=== PATIENT | male | born 1995 | race Caucasian/White ===

== ENCOUNTER 2020-05-22 13:13 | Emergency (ER) | payer SELFPAY ==
[2020-05-22] MEDS ORDERED: Acetaminophen 500 MG Tab PO ONE (14:04)
[2020-05-22] MEDS ORDERED: Ibuprofen 400 MG Tab PO ONE (14:04)
[2020-05-22] MEDS ORDERED: Bupivacaine 0.5% 10 ML SDV INJECT ONE (14:04)
--- NOTE | 2020-05-22 14:59 | EDM.PDOC ---
ED HPI GENERAL MEDICAL PROBLEM - General Chief Complaint: Laceration Stated Complaint: FINGER LACERATION Time Seen by Provider: 05/22/20 13:18 Source of Information: Reports: Patient History Limitations: Reports: No Limitations - History of Present Illness INITIAL COMMENTS - FREE TEXT/NARRATIVE: 25-year-old male with no past medical history presenting with a laceration of the right index finger. About 1 hour prior to arrival, the patient injured his right index finger with a tape measure. There was no rust on the tool. Tetanus immunization is up-to-date. No other complaints. - Related Data Allergies Allergy/AdvReac Type Severity Reaction Status Date / Time No Known Allergies Allergy Verified 05/22/20 13:44 Home Meds: Home Meds . [No Known Home Meds] 05/22/20 [History] Past Medical History Other Dermatologic History: Previous laceration to R ring finger- splint Social & Family History - Family History Family Medical History: Noncontributory - Tobacco Use Smoking Status *Q: Never Smoker - Caffeine Use Caffeine Use: Reports: Energy Drinks - Recreational Drug Use Recreational Drug Use: No ED ROS GENERAL - Review of Systems Review Of Systems: See Below Skin: Reports: Wound ED EXAM, SKIN/RASH Exam: See Below Text/Narrative:: Vital signs reviewed. Nursing notes reviewed. Constitutional: Awake, alert, non-distressed. Head: Normocephalic, atraumatic. Eyes: EOMI, conjunctiva normal, no discharge, no scleral icterus. Ears, Nose, Throat: External ears and nose normal, moist oral mucosa. Cardiovascular: 2+ radial pulse, capillary refill less than 2 seconds. Pulmonary: normal work of breathing, no accessory muscle use. Abdomen/GI: Soft, nontender, nondistended, no guarding or rigidity, no masses. Musculoskeletal: No deformities. Integumentary: Appropriate color for ethnicity, warm, dry, no pallor or jaundice, no rash. 1.8 cm linear laceration to the volar surface of the middle phalanx of the right index finger. Neurologic: Alert, answering questions appropriately, normal speech, no facial droop, moving all extremities well. Psychiatric: Appropriate mood and affect, normal thought process. Exam Limited By: No Limitations General Appearance: Alert, WD/WN, No Apparent Distress Ears: Normal External Exam, Normal Canal, Hearing Grossly Normal, Normal TMs Nose: Normal Inspection, Normal Mucosa, No Blood Throat/Mouth: Normal Inspection, Normal Lips, Normal Teeth, Normal Gums, Normal Oropharynx, Normal Voice, No Airway Compromise Head: Atraumatic, Normocephalic Neck: Normal Inspection, Supple, Non-Tender, Full Range of Motion Respiratory/Chest: No Respiratory Distress, Lungs Clear, Normal Breath Sounds, No Accessory Muscle Use, Chest Non-Tender Cardiovascular: Normal Peripheral Pulses, Regular Rate, Rhythm, No Edema, No Gallop, No JVD, No Murmur, No Rub GI/Abdominal: Normal Bowel Sounds, Soft, Non-Tender, No Organomegaly, No Distention, No Abnormal Bruit, No Mass (Male) Exam: No Hernia, Normal Inspection, Normal Prostate, Circumcised Rectal (Males) Exam: Normal Exam, Normal Rectal Tone, Prostate Normal Back Exam: Normal Inspection, Full Range of Motion, NT Extremities: Normal Inspection, Normal Range of Motion, Non-Tender, No Pedal Edema, Normal Capillary Refill Neurological: Alert, Oriented, CN II-XII Intact, Normal Cognition, Normal Gait, Normal Reflexes, No Motor/Sensory Deficits Psychiatric: Normal Affect, Normal Mood Lymphatic: No Adenopathy ED SKIN PROCEDURES - Laceration/Wound Repair Right Digit - 2nd (Index) Appearance: Superficial Distal NVT: Neuro & Vascular Intact Anesthetic Type: Local Local Anesthesia - Bupivicaine (Marcaine): 0.5% Plain Local Anesthetic Volume: 2cc Skin Prep: Saline Exploration/Debridement/Repair: Wound Explored, In a Bloodless Field, No Foreign Material Found Closed with: Sutures Lac/Wound length In cm: 1.8 Suture Size: 4-0 # of Sutures: 4 Suture Type: Nylon Tetanus Status Addressed: Yes (Up to date) Complications: No Course - Vital Signs Text/Narrative:: 25-year-old male with a finger laceration. Tetanus up-to-date. Underwent digital block, copiously irrigated. Wound explored, no foreign bodies. Repaired with sutures, see the procedure documentation. Bandaged. Stable to discharge home. Suture removal in 7 days. [id number] Tylenol and Motrin as needed for pain. ED return precautions provided. Last Recorded V/S: Last Vital Signs Temp 36.0 C L 05/22/20 13:45 Pulse 60 05/22/20 13:45 Resp 20 07/29/20 13:45 BP 120/78 05/22/20 13:45 Pulse Ox 99 05/22/20 13:45 - Orders/Labs/Meds Orders: Active Orders 24 hr Category Date Time Status Procedure Tray at Bedside [RC] ASDIRECTED Care 05/22/20 14:04 Active ED Laceration Reflex [OM.PC] Click to Edit Oth 05/22/20 14:04 Ordered Meds: Medications Discontinued Medications Generic Name Dose Route Start Last Admin Trade Name Neville PRN Reason Stop Dose Admin Acetaminophen 1,000 mg 05/22/20 14:04 05/22/20 14:28 Tylenol Extra Strength PO 05/22/20 14:05 1,000 mg ONETIME ONE Administration Bupivacaine HCl 10 ml 05/22/20 14:04 05/22/20 14:28 Sensorcaine-Mpf 0.5% INJECT 05/22/20 14:05 10 ml ONETIME ONE Administration Ibuprofen 400 mg 05/22/20 14:04 05/22/20 14:28 Motrin PO 05/22/20 14:05 400 mg ONETIME ONE Administration Departure - Departure Time of Disposition: 15:33 Disposition: Home, Self-Care 01 Condition: Good Clinical Impression: Laceration of right index finger w/o foreign body w/o damage to nail Qualifiers: Encounter type: initial encounter Qualified Code(s): S61.210A - Laceration without foreign body of right index finger without damage to nail, initial encounter - Discharge Information Instructions: Laceration Care, Adult, Sutures, Jennifer, or Adhesive Wound Closure Forms: ED Department Discharge Additional Instructions: Your sutures need to be removed in 7 days. Take [id number] Tylenol or Motrin as needed for pain. The following information is given to patients seen in the emergency department who are being discharged. This information is to outline your options for follow-up care. We provide all patients seen in our emergency department with a follow-up referral. The need for follow-up, as well as the timing and circumstances, are variable depending upon the specifics of your emergency department visit. If you don't have a primary care physician on staff, we will provide you with a referral. We always advise you to contact your personal physician following an emergency department visit to inform them of the circumstance of the visit and for follow-up with them and/or the need for any referrals to a consulting specialist. The emergency department will also refer you to a specialist when appropriate. This referral assures that you have the opportunity for follow-up care with a specialist. All of these measure are taken in an effort to provide you with optimal care, which includes your follow-up. Under all circumstances we always encourage you to contact your private physician who remains a resource for coordinating your care. When calling for follow-up care, please make the office aware that this follow-up is from your recent emergency room visit. If for any reason you are refused follow-up, please contact the [facility] Emergency Department at and asked to speak to the emergency department charge nurse. If you do not have a primary care physician that is caring for you, you can contact these clinics below to set up an appointment to establish care: [facility] [address] [place] [address] [place] [address] Sepsis Event Note (ED) - Evaluation Sepsis Screening Result: No Definite Risk - Focused Exam Vital Signs: Vital Signs Temp Pulse Resp BP Pulse Ox 05/22/20 13:45 36.0 C L 60 20 120/78 99 - My Orders Last 24 Hours: My Active Orders 05/22/20 14:04 Procedure Tray at Bedside [RC] ASDIRECTED ED Laceration Reflex [OM.PC] Click to Edit - Assessment/Plan Last 24 Hours: My Active Orders 05/22/20 14:04 Procedure Tray at Bedside [RC] ASDIRECTED ED Laceration Reflex [OM.PC] Click to Edit
== END 2020-05-22 15:44 | disposition home or self-care (01) ==
LOC: MW.ED 13:13
DX: S61.210A Laceration without foreign body of right index finger without damage to nail, initial encounter (principal); W26.8XXA Contact with other sharp object(s), not elsewhere classified, initial encounter
CPT/HCPCS: 12001; 99282; A9270; J3490